=== PATIENT | female | born 1975 | race Caucasian/White ===

== ENCOUNTER 2021-11-19 11:53 | Outpatient (CLI) | payer OTHER, SELFPAY ==
--- NOTE | ~2021-11-19 | MMUS_ITS ---
EXAMINATION: MM diagnostic vito BI w gabbi, US breast LT limited HISTORY: Lump in the axillary tail of the left breast TECHNIQUE: Craniocaudal, mediolateral, and mediolateral oblique 3-D tomosynthesis images of the breas ts were performed and synthetic 2-D images were generated. CAD analysis was submitted and interpreted . High resolution limited left breast ultrasound was performed. COMPARISON: 10/23/2018 BREAST PARENCHYMAL COMPOSITION: The breasts are heterogeneously dense, which may obscure small masses . FINDINGS: MAMMOGRAPHIC FINDINGS: There is no evidence of suspicious mass, calcification, or architectural distortion in either breast to suggest malignancy. There has been interval decrease in breast size, consistent with weight loss. No mammographic correlate is identified for the reported palpable abnormality of the left breast. ULTRASOUND: No suspicious cystic or solid mass is identified in the axillary tail of the left breast. There is a sonographically normal-appearing lymph nodes in the left axilla. IMPRESSION: 1. No specific mammographic or sonographic correlate is identified for the reported palpable abnormal ity of concern in the axillary tail of the left breast. Further evaluation at this time should be bas ed on clinical assessment. Continued follow-up physical examination is recommended. 2. Recommend routine screening mammography in one year. BI-RADS Category 1: Negative Reviewed, dictated and finalized at location A. UNICATIONS STRATEGIST IMPRESSION: 1. No specific mammographic or sonographic correlate is identified for the repo rted palpable abnormality of concern in the axillary tail of the left breast. F urther evaluation at this time should be based on clinical assessment. Continue d follow-up physical examination is recommended. 2. Recommend routine screening mammography in one year. BI-RADS Category 1: Negative
== END 2021-11-19 11:54 | disposition home or self-care (01) ==
LOC: ANHIMG 12:02
PROVIDERS: PCP Family Medicine; Visit Provider Nurse Practitioner Family
DX: N63.32 Unspecified lump in axillary tail of the left breast (principal)
CPT/HCPCS: 76642; 77062; 77066; G0279

== ENCOUNTER 2025-05-22 10:35 | Outpatient (CLI) | payer OTHER, SELFPAY ==
--- NOTE | 2025-05-22 11:24 | PCRCNOTE ---
Patient unable to perform PFT testing. Unable to follow directions, unable to keep seal on mouthpiece, unable to stay in box due to claustrophobia.
== END 2025-05-22 10:36 | disposition home or self-care (01) ==
PROVIDERS: PCP Family Medicine; Visit Provider Family Medicine
DX: R05.8 Other specified cough (principal)
CPT/HCPCS: 99199

== ENCOUNTER 2025-06-05 11:39 | Emergency (ER) | payer OTHER, SELFPAY ==
--- NOTE | ~2025-06-05 | CT_ITS ---
EXAM: CT brain wo con - 06/05/2025 12:35 CDT History: 49 years old Female with Mental status changes COMPARISON: None available. PROCEDURE: CT of the head without contrast. Axial, sagittal and coronal reformatted planes were leonides luated. Automatic exposure control was used for this study. FINDINGS: BRAIN PARENCHYMA: No acute hemorrhage. No mass effect or herniation. Naylor-white matter differentiatio n is maintained. Normal appearance of cortex. VENTRICLES/ EXTRA-AXIAL SPACES: No hydrocephalus or extra-axial fluid collection. EXTRACRANIAL STRUCTURES: No calvarial fracture. IMPRESSION: No evidence for acute intracranial hemorrhage or calvarial fracture. Reviewed, dictated and finalized at location A.
[2025-06-05 11:39] VITALS: BP 122/82; PULSE 66; RESP 16; TEMP 36.1; O2SAT 94
--- NOTE | 2025-06-05 12:00 | ED_ITS ---
HPI - Nausea/Vomiting/Diarrhea General Chief complaint: Nausea/Vomiting/Diarrhea Stated complaint: nausea/ feeling unwell Time Seen by Provider: 06/05/25 12:00 Source: patient Mode of arrival: ambulatory History of Present Illness HPI Narrative: 49-year-old female, assisted living resident with a history of bipolar, schizophrenia presents to the ED with a one-week history of -- not getting out of bed. The patient is normally ambulatory for the past 1 week has not been getting out of bed. no change in mental status -- Nausea with vomiting. No diarrhea. No abdominal pain. No fever or chills. MD elicited complaint: nausea and vomiting Onset (ago): week(s) ( One week) Description of vomiting: watery Associated nausea: Yes Associated abdominal pain: No Exacerbating factors: none Relieving factors: none Associated symptoms: denies other symptoms Related Data Home Medications ?Medication ?Instructions ?Recorded ?Confirmed ?Last Taken ?Type acetaminophen 500 mg tablet 500 mg PO Q6H 06/05/25 06/05/25 Unknown History clozapine 100 mg tablet mg 06/05/25 Unknown History clozapine 200 mg tablet mg 06/05/25 Unknown History famotidine 20 mg tablet mg 06/05/25 Unknown History fluphenazine HCl 5 mg tablet mg 06/05/25 Unknown History gabapentin 100 mg capsule mg 06/05/25 Unknown History hydroxyzine HCl 50 mg tablet mg 06/05/25 Unknown History lamotrigine 100 mg tablet mg 06/05/25 Unknown History lithium carbonate 450 mg mg PO 06/05/25 Unknown History tablet,extended release loratadine 10 mg disintegrating mg 06/05/25 Unknown History tablet oxybutynin chloride 10 mg mg PO 06/05/25 Unknown History tablet,extended release 24 hr psyllium husk 0.4 gram capsule g PO 06/05/25 Unknown History (Reguloid (psyllium husk)) Allergies Allergy/AdvReac Type Severity Reaction Status Date / Time mold Allergy Mild Anaphylaxis Verified 06/05/25 11:57 olanzapine (From Zyprexa) Allergy Unknown Anaphylaxis Verified 06/05/25 11:57 Penicillins Allergy Anaphylaxis Verified 06/05/25 11:57 Review of Systems 2 Review of Systems: All systems reviewed & are unremarkable except as noted in HPI and below Constitutional: Constitutional: Reports as per HPI and Reports no additional constitutional complaints Eyes: Eyes: Reports as per HPI and Reports no additional eye complaints ENT: Reports system reviewed and no additional complaints, except as documented and Reports as per HPI Cardiovascular: Cardiovascular: Reports as per HPI and Reports no additional cardiovascular complaints Respiratory: Respiratory: Reports as per HPI and Reports no additional respiratory complaints Gastrointestinal: Gastrointestinal: Reports as per HPI, Reports no additional gastrointestinal complaints, Reports nausea and Reports vomiting Genitourinary: Genitourinary: Reports no additional female genitourinary complaints and Reports as per HPI Musculoskeletal: Musculoskeletal: Reports no additional musculoskeletal complaints and Reports as per HPI Integumentary/Breasts: Skin/Breast: Reports system reviewed and no additional complaints, except as docu and Reports as per HPI Neurologic: Reports system reviewed and no additional complaints, except as documented and Reports as per HPI Psychiatric: Psychiatric: Reports no additional psychiatric complaints and Reports as per HPI Comments: occasional auditory hallucinations Exam 2 Narrative: vitals are stable Const: General: no acute distress Nutritional Appearance: thin O rientation/consciousness: patient oriented x3 Limitations: no limitations HENMT: Head: normal to inspection Ears: external ears normal F chelsy/Nose/Sinus: Normal external nose present Face and sinus: normal facial exam Mouth: Yes Normal oral and palatal mucosa present Throat: posterior oropharynx normal Eyes: Conjunctivae: conjunctivae normal Cornea: corneas normal Pupils: E qual, round and reactive pupils present EOM: EOMs intact bilaterally D irect Ophthalmoscopy: no photophobia Neck: Neck: normal visual inspection, no lymphadenopathy and no meningeal signs Chest: Chest palpation & inspection: normal inspection of the chest Resp: Effort & Inspection: normal respiratory effort Auscultation: clear to auscultation bilaterally Cardio: Rate: regular rate Rhythm: regular rhythm GI: GI Palp: Yes Soft to palpation Auscultation: normal bowel sounds O ther: no tenderness/rigidity / rebound. : General: Yes no CVA tenderness Back/Spine/Pelvis: Back: no CVA tenderness Skin: General skin exam: normal color Rashes: no rashes Wounds: no wounds Neuro: General: patient oriented x3, moves all extremities, no meningeal signs, no focal motor deficits and CN's II-XI intact bilaterally Cranial nerves: Yes Nystagmus not present Speech: normal speech Extrem: General: normal to inspection and no clubbing, cyanosis or edema Psych: Mental Status: mental status grossly normal Affect: normal affect Attitude: cooperative Course Course Emergency Course: Nausea and vomiting possibly secondary to gastritis not getting out of bed-- no focal deficit noted. CT of the head did not show any acute findings. Blood work is unremarkable. UA is positive. Will treat with UTI. Vital Signs Vital signs: Vital Signs Temperature 36.1 C L 06/05/25 11:39 Pulse Rate 66 06/05/25 11:39 Respiratory Rate 16 06/05/25 11:39 Blood Pressure 122/82 06/05/25 11:39 Pulse Oximetry 94 06/05/25 11:39 Oxygen Delivery Room Air 06/05/25 11:39 Temperature 36.1 C L 06/05/25 11:39 Pulse Rate 66 06/05/25 11:39 Respiratory Rate 16 06/05/25 11:39 Blood Pressure 100/74 06/05/25 13:09 Pulse Oximetry 97 06/05/25 13:09 Oxygen Delivery Room Air 06/05/25 11:39 MDM - Nausea/Vomiting/Diarrhea MDM Narrative Medical decision making narrative: Nausea and vomiting urinary tract infection Differential Diagnosis Differential diagnosis: Likely traveler's diarrhea Medical Records Attestation: I reviewed the patient's medical records. Lab Data Attestation: I reviewed the patient's lab results. 06/05/25 12:33 06/05/25 12:33 Labs: Lab Results 06/05/25 06/05/25 Range/Units 12:30 12:33 WBC 9.4 (4.8-10.8) K/mm3 RBC 4.59 (4.20-5.40) M/mm3 Hgb 13.9 (12.0-15.0) g/dL Hct 43.1 (35.0-49.0) % MCV 93.9 (78.0-102.0) fL MCH 30.3 (27.0-31.0) pg MCHC 32.3 (32-36) g/dL RDW 13.6 (11.6-14.4) % Plt Count 251 (150-420) K/mm3 MPV 9.7 (9.2-11.8) fl Immature Gran % (Auto) 0.3 H (0.0-0.0) % Neut % (Auto) 79.8 H (50.0-70.0) % Lymph % (Auto) 13.1 L (18.0-42.0) % [place] % (Auto) 5.9 (2.0-11.0) % Eos % (Auto) 0.5 L (1.0-6.0) % Baso % (Auto) 0.4 (0.0-1.0) % Lymph # (Auto) 1.23 (1.10-4.50) K/mm3 [place] # (Auto) 0.56 (0.10-0.90) K/mm3 Eos # (Auto) 0.05 (0.02-0.50) K/mm3 Baso # (Auto) 0.04 (0.00-0.10) K/mm3 Abs Immat Gran (auto) 0.03 H (0.00-0.00) K/mm3 Absolute Neuts (auto) 7.51 H (1.70-7.20) K/mm3 Absolute Nucleated RBC 0.00 (0.00-0.00) K/mm3 Nucleated RBC % 0.0 (0-0.0) % Sodium 136 L (137-145) mmol/L Potassium 4.2 (3.4-5.0) mmol/L Chloride 106 (98-107) mmol/L Carbon Dioxide 24 (22-30) mmol/L Anion Gap 6 (4-12) mmol/L BUN 21 H (7-17) mg/dL Creatinine 0.87 (0.7-1.0) mg/dL Estim Creat Clear Calc 58 ml/min Estimated GFR > 60 (59 - ) Glucose 100 (65-110) mg/dL Calculated Osmolality 285 (285-295) mOsm/kg Lactic Acid 0.7 (0.4-2.0) mmol/L Calcium 9.8 (8.4-10.2) mg/dL Total Bilirubin 0.4 (0.2-1.3) mg/dL AST 25 (14-36) U/L ALT 28 (6-35) U/L Alkaline Phosphatase 46 (38-126) U/L Troponin I < 0.012 (0.000-0.034) ng/mL Total Protein 7.0 (6.3-8.2) g/dL Albumin 4.5 (3.5-5.1) g/dL Lipase 94 (23-300) U/L TSH 1.360 (0.465-4.680) uIU/mL Urine Color Yellow (Yellow) Urine Appearance Clear (Clear) Urine pH 6.0 (5.0-8.0) Ur Specific [place] 1.015 (1.010-1.020) Urine Protein Trace H (Negative) Urine Glucose (UA) Negative (Negative) Urine Ketones Trace H (Negative) Ur Blood (Man) Negative (Negative) Urine Nitrate Negative (Negative) Urine Bilirubin 1+ H (Negative) Urine Urobilinogen 0.2 (0.2-1.0) mg/dL Leukocyte Esterase Rfl 2+ H (Negative) THERESE/UL Urine RBC None seen (0-2) /hpf Urine WBC 4-6 H (0-3) /hpf Ur Squamous Epith Cells Few (Few) /hpf Urine Bacteria 1+ H (None) /hpf ECG Data EKG #1: ECG completion date: 06/05/25 ECG completion time: 12:20 Interpretation: normal sinus rhythm. Normal axis. No ST elevation. Discharge Plan Discharge Clinical Impression: Urinary tract infection Qualifiers: Urinary tract infection type: site unspecified Hematuria presence: without hematuria Qualified Code(s): N39.0 - Urinary tract infection, site not specified Vomiting Qualifiers: Vomiting type: unspecified Nausea presence: with nausea Qualified Code(s): R 11.2 - Nausea with vomiting, unspecified Patient Disposition: Home Condition: Stable Instructions: Antibiotic Form, Urinary Tract Infection in Women (DC), Acute Nausea and Vomiting (ED) Patient Language: Arabic Prescriptions: New sulfamethoxazole-trimethoprim [Bactrim DS] 800-160 mg tablet 1 tablet PO Q12H Qty: 10 0RF No Action acetaminophen 500 mg tablet 500 mg PO Q6H loratadine 10 mg tablet,disintegrating oxybutynin chloride 10 mg tablet extended release 24hr PO clozapine 100 mg tablet hydroxyzine HCl 50 mg tablet lithium carbonate 450 mg tablet extended release PO famotidine 20 mg tablet gabapentin 100 mg capsule lamotrigine 100 mg tablet fluphenazine HCl 5 mg tablet clozapine 200 mg tablet psyllium husk [Reguloid (psyllium husk)] 0.4 gram capsule PO Follow-up/Referrals: Lexa Weinberg MD [Primary Care Provider] - Time of Disposition: 13:25
--- NOTE | 2025-06-05 12:10 | ECG_ITS ---
Test Date: 2025-06-05 12:20:38 Measurements Intervals [place] Rate: 70 P: 64 GA: 168 QRS: 83 QRSD: 107 T: 38 QT: 412 QTc: 445 Interpretive Statements SINUS RHYTHM NONSPECIFIC T-WAVE ABNORMALITY CANNOT RULE OUT INFERIOR INFARCTION, AGE INDETERMINATE LEFT VENTRICULOGRAPHY ABNORMAL ECG No previous ECG available for comparison Electronically Signed On 06-05-2025 14:04:52 CDT by Alonso Zuleta M.D.
--- NOTE | 2025-06-05 12:35 | PC.NURSE ---
Pt to CT scanner with radiology transport. RN calls about labs. Lab states that labs have been drawn just have not been marked as pending in [facility].
[2025-06-05 12:37] LABS: Hematocrit 43.1 % (35.0-49.0); Hemoglobin 13.9 g/dL (12.0-15.0); Immature Granulocyte Percent A 0.3 % (0.0-0.0); Lymphocytes Absolute Auto 1.23 K/mm3 (1.10-4.50); Mean Corpuscular HGB Conc 32.3 g/dL (32-36); Mean Corpuscular Hemoglobin 30.3 pg (27.0-31.0); Mean Corpuscular Volume 93.9 fL (78.0-102.0); Nucleated Red Blood Cells Absolute Auto 0.00 K/mm3 (0.00-0.00); Nucleated Red Blood Cells Perc 0.0 % (0-0.0); Platelet Count Result 251 K/mm3 (150-420); Red Blood Count 4.59 M/mm3 (4.20-5.40); White Blood Count 9.4 K/mm3 (4.8-10.8)
[2025-06-05 12:39] LABS: Add Urine Microscopic? YES; Appearance Urine Clear (Clear); Glucose Urine UA Negative (Negative); Leukocyte Esterase Ur 2+ LEU/UL (Negative); Nitrate Urine Negative (Negative); Specific Grav Ur 1.015 (1.010-1.020)
--- NOTE | 2025-06-05 12:44 | PC.NURSE ---
Pt back in room from CT scanner.
[2025-06-05 12:49] LABS: Alanine Aminotransferase 28 U/L (6-35); Albumin Level 4.5 g/dL (3.5-5.1); Alkaline Phosphatase 46 U/L (38-126); Anion Gap 6 mmol/L (4-12); Aspartate Amino Transferase 25 U/L (14-36); Bilirubin,Total 0.4 mg/dL (0.2-1.3); Blood Urea Nitrogen 21 mg/dL (7-17); Calcium 9.8 mg/dL (8.4-10.2); Carbon Dioxide 24 mmol/L (22-30); Chloride 106 mmol/L (98-107); Estimated CRCL calculation 58 ml/min; Estimated Glomerular Filt Rate > 60; Glucose 100 mg/dL (65-110); Lipase 94 U/L (23-300); Osmolality Calculated 285 mOsm/kg (285-295); Potassium 4.2 mmol/L (3.4-5.0); Sodium 136 mmol/L (137-145); Total Protein 7.0 g/dL (6.3-8.2)
[2025-06-05 13:02] LABS: Troponin I < 0.012 ng/mL (0.000-0.034)
[2025-06-05 13:09] VITALS: BP 100/74; O2SAT 97
[2025-06-05 13:10] VITALS: O2SAT 96
[2025-06-05 13:15] VITALS: BP 99/72; O2SAT 96
[2025-06-05 13:16] VITALS: O2SAT 96
[2025-06-05 13:20] LABS: Thyroid Stimulating Hormone 1.360 uIU/mL (0.465-4.680)
--- NOTE | 2025-06-07 12:24 | PC.NURSE ---
urine culture, mixed trish only. final
== END 2025-06-05 13:38 | disposition home or self-care (01) ==
PROVIDERS: Emergency Provider Internal Medicine Critical Care Medicine; PCP Family Medicine
DX: N39.0 Urinary tract infection, site not specified (principal); R11.2 Nausea with vomiting, unspecified; F31.9 Bipolar disorder, unspecified; F20.9 Schizophrenia, unspecified
CPT/HCPCS: 36415; 70450; 80053; 80178; 81001; 83605; 83690; 84443; 84484; 85025; 87086; 93005; 99284

== ENCOUNTER 2025-09-27 12:47 | Outpatient (CLI) | payer OTHER, SELFPAY ==
--- NOTE | ~2025-09-27 | XR_ITS ---
EXAMINATION: XR abdomen obstructive series DATE: 09/27/2025 13:09 INDICATION: Constipation TECHNIQUE: Frontal supine and upright views of the abdomen were obtained. COMPARISON: None. FINDINGS: Moderate to large amount of stool scattered throughout the colon consistent with given history of constipation. No dilated loops of gas-filled bowel to suggest obstruction. No free intraperitoneal gas. Calcified nodule left midlung zone consistent with old granulomatous disease. Heart size is normal.. IMPRESSION: 1. Moderate to large amount of colonic stool consistent with given history of constipation. No bowel obstruction or free intraperitoneal gas. Reviewed, dictated and finalized at location A. GER PROGRAM
[2025-09-27 13:00] LABS: Hematocrit 35.6 % (35.0-49.0); Hemoglobin 11.3 g/dL (12.0-15.0); Immature Granulocyte Percent A 0.3 % (0.0-0.0); Lymphocytes Absolute Auto 1.52 K/mm3 (1.10-4.50); Mean Corpuscular HGB Conc 31.7 g/dL (32-36); Mean Corpuscular Hemoglobin 30.4 pg (27.0-31.0); Mean Corpuscular Volume 95.7 fL (78.0-102.0); Nucleated Red Blood Cells Absolute Auto 0.00 K/mm3 (0.00-0.00); Nucleated Red Blood Cells Perc 0.0 % (0-0.0); Platelet Count Result 221 K/mm3 (150-420); Red Blood Count 3.72 M/mm3 (4.20-5.40); White Blood Count 6.1 K/mm3 (4.8-10.8)
[2025-09-27 13:15] LABS: INR 1.0; Partial Thromboplastin Time 31.6 Sec (23.9-30.70); Prothrombin Time 10.6 Seconds (9.50-12.1)
[2025-09-27 13:21] LABS: Alanine Aminotransferase 36 U/L (6-35); Albumin Level 4.4 g/dL (3.5-5.1); Alkaline Phosphatase 70 U/L (38-126); Anion Gap 10 mmol/L (4-12); Aspartate Amino Transferase 31 U/L (14-36); Blood Urea Nitrogen 11 mg/dL (7-17); Calcium 9.9 mg/dL (8.4-10.2); Carbon Dioxide 27 mmol/L (22-30); Chloride 109 mmol/L (98-107); Estimated Glomerular Filt Rate > 60; Glucose 94 mg/dL (65-110); Osmolality Calculated 301 mOsm/kg (285-295); Potassium 4.1 mmol/L (3.4-5.0); Sodium 146 mmol/L (137-145); Total Protein 6.3 g/dL (6.3-8.2)
[2025-09-27 13:52] LABS: Thyroid Stimulating Hormone 2.520 uIU/mL (0.465-4.680)
[2025-10-01 13:50] LABS: Bilirubin,Total 0.1 mg/dL (0.2-1.3)
== END 2025-09-27 12:48 | disposition home or self-care (01) ==
PROVIDERS: PCP Family Medicine; Visit Provider Family Medicine
DX: R10.9 Unspecified abdominal pain (principal); K62.5 Hemorrhage of anus and rectum; K59.00 Constipation, unspecified
CPT/HCPCS: 36415; 74019; 80053; 84443; 85025; 85610; 85730